=== PATIENT | female | born 1970 | race Caucasian/White ===

== ENCOUNTER → 2018-11-30 | Outpatient (CLI) | payer MEDICAID | LOC: CIMAGING 12:40 | PROVIDERS: ATTEND Family Medicine | DX: J45.909 Unspecified asthma, uncomplicated (principal); R91.8 Other nonspecific abnormal finding of lung field; Z79.899 Other long term (current) drug therapy | CPT/HCPCS: 71046-PO ==

== ENCOUNTER 2019-01-09 13:24 | Emergency (ER) | payer MEDICAID ==
[2019-01-09 13:36] VITALS: BP 155/127
[2019-01-09] MEDS ORDERED: IBUPROFEN 800 MG TAB PO ONE (13:48)
[2019-01-09] MEDS ORDERED: BENZONATATE 100 MG CAP PO ONE (13:48)
--- NOTE | 2019-01-09 13:54 | EDPHY ---
H & P Time Seen by Provider: 01/09/19 13:33 HPI/ROS: HPI Cough, congestion, sore throat. 48-year-old female by private vehicle. This patient presents to the emergency department with complaint of nonproductive cough, nasal congestion and rhinorrhea, sore throat, onset Friday. ROS: Constitutional: No fever, no chills. No weakness. Eyes: No discharge. No changes in vision. ENT: As above. Respiratory: As above. No shortness of breath. Cardiac: No chest pain, no palpitations. Gastrointestinal: No abdominal pain, no vomiting, no diarrhea. Musculoskeletal: No back pain. No neck pain. No myalgias or arthralgias. Skin: No rashes. Neurological: No headache. No focal weakness or altered sensation. Past medical history: Depression, attention deficit hyperactivity disorder, migraine headaches, asthma, rosacea. Social history: Nonsmoker. Here by herself. No alcohol. Physical Exam: General Appearance: Alert, no distress. Intermittent nonproductive cough. This patient is responding to questions appropriately and in full sentences. This patient appears well-hydrated and well-nourished. Eyes: Pupils equal and round no pallor or injection. No lid edema, erythema or injection. ENT, Mouth: Mucous membranes are moist. Mild and diffuse pharyngeal erythema. Pharyngeal tissues are otherwise unremarkable. No edema or swelling. No asymmetry suggestive of abscess. No exudates. No cervical, submandibular, submental lymphadenopathy. No voice changes. No stridor on auscultation of her neck. Respiratory: There are no retractions, lungs are clear to auscultation with good air movement bilaterally. No tachypnea. No wheezing. Cardiovascular: Regular rate and rhythm. No murmur. Neurological: Motor sensory function is grossly intact. Cranial nerves are normal. Gait is normal. Skin: Warm and dry, no rashes. Musculoskeletal: Neck is supple and nontender. Extremities are symmetrical. All joints range without pain or impingement. Psychiatric: No agitation. No depression. Database: Influenza test negative. Rapid strep negative. EKG: Imaging: Procedures: Emergency department course: Triage vital signs reviewed. She is moderately hypertensive. Vital signs are otherwise normal. She is afebrile. Her presentation is consistent with a viral upper respiratory infection. Influenza strep testing ordered from triage. Patient will be given 800 mg of ibuprofen for sore throat and Tessalon parole for her cough. 2:15 p.m., the patient was re-evaluated, resting comfortably at this time. Results of her diagnostic testing discussed with her. Diagnosis of viral upper respiratory infection discussed. I did not feel that antibiotics are indicated at this time. She feels comfortable going home and I feel she is safe for discharge. I will prescribe Tessalon Perle for cough. I discussed ibuprofen dosing for her her sore throat. She has been instructed follow up with her primary care physician on Friday for re-evaluation. Return to emergency department precautions were thoroughly reviewed with her. All of her questions were answered. She was discharged from the emergency department in good condition. Differential Diagnosis: The differential diagnosis on this patient includes but is not limited to upper respiratory infection, viral pharyngitis. Streptococcal pharyngitis, tracheitis , epiglottitis, retropharyngeal abscess, peritonsillar abscess, influenza, pneumonia unlikely. This represents a partial list of diagnoses considered. These considerations are based on history, physical exam, past history, reassessment and diagnostic testing. Smoking Status: Current every day smoker Constitutional: Initial Vital Signs Temperature (C) 37.0 C 01/09/19 13:32 Heart Rate 91 01/09/19 13:32 Respiratory Rate 16 01/09/19 13:32 Blood Pressure 155/127 H 01/09/19 13:32 O2 Sat (%) 97 01/09/19 13:32 O2 Delivery Mode Room Air Allergies/Adverse Reactions: latex Allergy (Verified 01/09/19 13:37) Home Medications: Medication Instructions Recorded Abilify 10 mg (*) 01/09/19 Albuterol Sulfate [Proair Hfa] 01/09/19 Benzonatate [Tessalon Pearles] 100 mg PO TID #12 cap 01/09/19 Dexedrine 15 MG (*) 01/09/19 Doxycycline Monohydrate [Oracea] 01/09/19 FLUoxetine [Prozac 10 MG (*)] 01/09/19 Fluticasone Hfa 220 Mcg [Flovent 01/09/19 220 MCG Hfa MDI (*)] Montelukast Sodium [Singulair 10 01/09/19 mg (*)] Propranolol HCl 01/09/19 Sumatriptan Succinate [IMITREX] 01/09/19 Medical Decision Making - Data Points Medications Given: Discontinued Medications Benzonatate (Tessalon Pearles) 200 mg PO EDNOW ONE Stop: 01/09/19 13:49 Last Admin: 01/09/19 13:54 Dose: 200 mg Ibuprofen (Motrin) 800 mg PO EDNOW ONE Stop: 01/09/19 13:49 Last Admin: 01/09/19 13:54 Dose: 800 mg Point of Care Test Results: Influenza PCR Flu Nasal Swab Collection Date 01/09/19 Flu Nasal Swab Collection Time 13:35 Influenza A Result Not Detected Influenza B Result Not Detected Strep Strep Throat Swab Collection 01/09/19 Date Strep Throat Swab Swab 14:00 Collection Time Strep Result Not Detected Departure - Departure Disposition: Home, Routine, Self-Care Clinical Impression: Pharyngitis, Upper respiratory infection Condition: Good Instructions: Pharyngitis in Children (ED), Upper Respiratory Infection (ED) Additional Instructions: Read and follow provided instructions. Follow-up with your primary care physician on Friday for re-evaluation as discussed. Your blood pressure was also elevated and that should be evaluated by her primary care physician. Take medication as prescribed for cough. He can also use [id number] cough and cold medications as directed such as NyQuil and Dimetapp. Ibuprofen dosin mg every 6 hours with meals for the next 3 days only. Take only as needed for pain. Return to the emergency department for worsening symptoms, high fever, worsening cough, difficulty breathing, worsening sore through or other serious concerns. Referrals: Nahomy Buenrostro MD [Primary Care Provider] - As per Instructions Prescriptions: Benzonatate [Tessalon Pearles] 100 mg PO TID #12 cap
== END 2019-01-09 14:22 | disposition home or self-care (01) ==
LOC: CED 13:24
DX: J06.9 Acute upper respiratory infection, unspecified (principal); J02.9 Acute pharyngitis, unspecified
CPT/HCPCS: 99283-ER